=== PATIENT | male | born 1950 | race Caucasian/White ===

== ENCOUNTER → 2023-09-16 15:22 | Outpatient (REF) | payer MEDICARE, BC, SELFPAY | LOC: RAD 15:22 | PROVIDERS: ATTENDING PHYSICIAN Family Medicine | DX: E04.1 Nontoxic single thyroid nodule (principal); I35.0 Nonrheumatic aortic (valve) stenosis | CPT/HCPCS: 76536 ==

== ENCOUNTER → 2023-09-17 16:44 | Outpatient (REF) | payer MEDICARE, BC, SELFPAY | LOC: RCS 16:44 | PROVIDERS: ATTENDING PHYSICIAN Family Medicine | DX: I35.0 Nonrheumatic aortic (valve) stenosis (principal) | CPT/HCPCS: 93306 ==

== ENCOUNTER → 2024-11-12 13:47 | Outpatient (REF) | payer MEDICARE, BC, SELFPAY | LOC: RCS 13:47 | PROVIDERS: ATTENDING PHYSICIAN Family Medicine | DX: E04.1 Nontoxic single thyroid nodule (principal); I35.0 Nonrheumatic aortic (valve) stenosis | CPT/HCPCS: 76536; 93306 ==

== ENCOUNTER 2025-03-12 16:54 | Emergency (ER) | payer MEDICARE, BC, SELFPAY ==
[2025-03-12 16:58] VITALS: BP 161/66
[2025-03-12 17:00] VITALS: BP 161/66; BMI 34.4
[2025-03-12 18:02] VITALS: BP 154/67
--- NOTE | 2025-03-12 18:16 | ED.GENMED ---
History of Present Illness
General
Chief Complaint: Musculo-Skeletal Complaint
Source: patient
Exam Limitations: none
Time Seen by Provider: 03/12/25 17:23
History of Present Illness
History of Present Illness:
Note:
CHIEF COMPLAINT(S)
Lower back pain progressing to left hip pain, with significant difficulty bearing weight.
HISTORY OF PRESENT ILLNESS
The patient is a 75-year-old male with a history of recurrent lower back pain, presenting with acute onset pain in the lower back that progressed to the left hip. The patient reports that the pain began yesterday afternoon and intensified to the
point he could not bear any weight on the affected side by today. He describes the pain as severe, stating, 'I literally couldnt walk.' He noted that he experiences relief now but could not previously lie on the affected side. No recent falls or
injuries were reported. The patient speculates a possible nerve involvement due to the sudden and severe nature of the pain. He expressed concern about a potential reaction following a recent COVID-19 and flu vaccine received on Friday, but no
systemic joint involvement suggests this as unlikely. He self-administered Aleve for pain relief, which provided minimal benefit initially. However, the patient notes significant improvement post-ambulatory assessment, stating, 'My pain is gone.' He
denies fevers or redness but mentions mild nausea, attributing it to a lack of food intake. He describes a sensation of numbness in the tailbone area upon ambulation. No focal neurological deficits were noted during the examination, and range of
motion in the hip and knee was uneventful. An x-ray of the hip was planned to further investigate the complaint.
MEDICATIONS
Aleve taken previously for pain relief.
REVIEW OF SYSTEMS
- Musculoskeletal: Severe left hip pain initially preventing weight-bearing, now resolved; no bruising or swelling noted.
- Neurological: Mild numbness reported in the tailbone area; no focal deficits observed.
- Gastrointestinal: Mild nausea reported, associated with lack of food intake.
- Respiratory: No distress reported.
- General: Denies fever.
PHYSICAL EXAM
General: Alert, no acute distress.
Skin: Warm, dry.
Head: Normocephalic, atraumatic.
Neck: Supple, trachea midline.
Eye, Ears, Nose, Mouth and Throat: Oral mucosa moist.
Cardiovascular: Normal peripheral perfusion, No edema.
Respiratory: Respirations are non-labored.
Gastrointestinal: Abdomen nondistended.
Back: No midline tenderness, Normal alignment.
Musculoskeletal: Normal range of motion and strength; no pain on movement; able to bear weight and ambulate without difficulty.
Neurological: Alert and oriented to person, place, time, and situation, no focal neurological deficit observed.
Psychiatric: Cooperative, appropriate mood & affect.
PLAN
1. X-ray of the hip to assess underlying causes for pain and to rule out any significant musculoskeletal injury or pathology.
2. Continue monitoring symptom progression and response to conservative management.
DIFFERENTIAL DIAGNOSIS
The Differential Diagnosis includes, in no particular order and is not limited to:
1. Sciatica or nerve impingement
2. Hip joint pathology (e.g., labral tear)
3. Osteoarthritis exacerbation
4. Muscle strain or sprain
5. Iliotibial band syndrome
6. Referred pain from lumbar spine
7. Trochanteric bursitis
8. Hip fracture or stress fracture
9. Inflammatory arthropathy
10. Acute pain reaction possibly correlated with recent vaccination (unlikely but considered)
Disposition:
SUMMARY OF ENCOUNTER
The patient, a 75-year-old male, presented to the emergency department with resolved left hip pain. He reported the pains acute onset the day prior, which had increased in intensity but had since improved significantly. There was no reported trauma,
and the patient was able to ambulate without difficulty upon assessment. An x-ray of the hip revealed no fractures but showed a bony spur and calcific density near the greater trochanter, which was suspicious for calcific bursitis. Degenerative
changes were also noted. Given the improvement in symptoms and the lack of neurologic deficits, septic joint was not suspected. The primary considerations included radiculopathy or musculoskeletal joint dysfunction.
DISPOSITION
Discharge.
PLAN
Discharge with instructions for outpatient follow-up.
INDEPENDENT REVIEW OF LABS AND INTERPRETATION OF TESTS
My independent interpretation of the hip x-ray reveals no fractures, presence of a bony spur, and calcific density near the greater trochanter that raises suspicion for calcific bursitis, along with degenerative changes.
PATIENT EDUCATION AND COUNSELING
The patient was counseled about the findings and reassured regarding the absence of acute fractures. They were advised on the nature of the degenerative changes and the suspicion of calcific bursitis. Follow-up in the outpatient setting was
encouraged for continued management.
FOLLOW-UP INSTRUCTIONS
Please schedule a follow-up visit with a primary care or specialist for further evaluation and management.
MEDICAL DECISION MAKING
-Complexity of Data Reviewed: Chronic conditions affecting care include hypertension, hyperlipidemia, and history of gastrointestinal bleeding. Differential diagnosis considerations include:
1. Sciatica or nerve impingement
2. Hip joint pathology (e.g., labral tear)
3. Osteoarthritis exacerbation
4. Muscle strain or sprain
5. Iliotibial band syndrome
6. Referred pain from lumbar spine
7. Trochanteric bursitis
8. Hip fracture or stress fracture
9. Inflammatory arthropathy
10. Acute pain reaction possibly correlated with recent vaccination (unlikely but considered)
-Data:
Category 1
- Hip x-ray interpretation was conducted independently.
Category 2
- No additional history obtained from external sources.
Category 3
- No discussion of management with external healthcare providers was documented.
DIAGNOSIS
1. Trochanteric bursitis, calcific - ICD-10: M70.62
2. Osteoarthritis of hip - ICD-10: M16.9
Past History
Past History
ED Past Medical History: None
ED Past Surgical History: None
Phy Exam
Physical Exam
Physical Exam:
.
Course
Orders/Labs/Results
Orders:
Orders
03/12/25 17:04
CR Hip - LT w/wo Pel 2-3 Vw* Urgent
Comment:
Reason For Exam: pain
Include a pelvis x-ray?: Yes
Vital Signs
Initial and Last Documented VS:
Initial Vital Signs
BP
161/66
03/12/25 16:58
Last Documented Vital Signs
Temp Pulse Resp BP Pulse Ox
97.9 F 83 16 154/67 92
03/12/25 17:00 03/12/25 18:15 03/12/25 18:15 03/12/25 18:02 03/12/25 18:18
*Pulse Oximetry
SaO2: 92
Oxygen Mode of Delivery: Room air
Patient hypoxic: no
*Critical Care Note
Total Time (30-74mins, 75-104mins- exclusive of procedures): Not Applicable
ED Attending Note
-
Portions of this chart may have been created with voice recognition software.� Occasional wrong word or��sound alike� substitutions may have occurred due to the inherent limitations of voice recognition software.
Discharge Plan
Departure
Patient Disposition: Home (Routine Discharge)
Date of Disposition: 03/12/25
Time of Disposition: 18:22
Patient with high blood pressure during this ER visit?: Yes
Discharge Problem:
Acute hip pain
Instructions: BLOOD PRESSURE
Prescriptions:
No Action
aspirin 81 MG tablet,delayed release (DR/EC)
81 mg PO DAILY
amlodipine-benazepril 1 EACH capsule
1 ea PO QPM
multivitamin 1 EACH tablet
1 ea PO DAILY
Atorvastatin
40 mg PO DAILY
metoprolol tartrate 25 MG tablet
25 mg PO DAILY
Referrals:
Cas Ortega MD [Family Provider, Family Practice]
Activity Restrictions/Additional Instructions:
Hip Pain
Possible Lumbar Radiculopathy vs Inflammatory hip dysfunction
Please see your doctor in the next 1 week if any symptoms persist. Return immediately for motor weakness, worsening pain, fevers or any other concerns. Please rest.
Interventions
Interventions:
*Risk Screen - Suicide Last Done: 03/12/25 17:02
*General Assessment Last Done: 03/12/25 17:02
*Neglect/Abuse Screening Last Done: 03/12/25 17:02
*ED- Fall Risk Assessment Last Done: 03/12/25 17:02
*ED COVID-19 Vaccine History Last Done: 03/12/25 17:02
*ED Influenza Vaccine History Last Done: 03/12/25 17:02
*Nursing Disposition Last Done: 03/12/25 18:48
ED-Musculoskeletal Assessment Last Done: 03/12/25 17:03
Discharge Date and Time
Discharge Date/Time: 03/12/25 18:49
Print Language: BHUTANESE
== END 2025-03-12 18:49 | disposition home or self-care (01) ==
LOC: EMR 16:54
PROVIDERS: EMERGENCY PHYSICIAN Emergency Medicine; FAMILY PHYSICIAN Family Medicine
DX: M70.62 Trochanteric bursitis, left hip (principal); M16.12 Unilateral primary osteoarthritis, left hip; M54.50 Low back pain, unspecified
CPT/HCPCS: 99283; 73502